=== PATIENT | female | born 1995 | race Caucasian/White ===

== ENCOUNTER 2024-02-10 17:08 | Emergency (ER) | payer OTHER, SELFPAY ==
[2024-02-10 17:17] VITALS: BP 121/81; PULSE 95; RESP 17; TEMP 36.7; O2SAT 93; BMI 18.8
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
[2024-02-10] MEDS: naproxen 500 mg Tablet PO (18:56)
[2024-02-10] MEDS: methocarbamol 750 mg Tablet 1500 MG PO (18:56)
[2024-02-10 18:57] VITALS: BP 108/82; PULSE 83; RESP 16; O2SAT 96
[2024-02-10 20:11] VITALS: BP 109/67; PULSE 75; O2SAT 95
--- NOTE | 2024-02-10 20:12 | PC.NURSE ---
took over pt care from sawyer ryan at 2005.
== END 2024-02-10 20:12 | disposition home or self-care (01) ==
PROVIDERS: Emergency Provider Emergency Medicine
DX: S13.4XXA Sprain of ligaments of cervical spine, initial encounter (principal); V89.2XXA Person injured in unspecified motor-vehicle accident, traffic, initial encounter
CPT/HCPCS: 72040; 99283